=== PATIENT | male | born 1945 | race Caucasian/White ===

== ENCOUNTER 2019-05-05 10:30 | Day surgery (SDC) | payer MEDICARE, BC ==
[~2019-05-05 10:30] MED LIST: Propofol 200 MG/20 ML SDV ONE
[2019-05-05] MEDS ORDERED: Sodium Chloride 0.9% 10 ML Syringe FLUSH PRN (10:45)
[2019-05-05] MEDS: Lactated Ringers 1,000 ML IV SCH (10:54)
[2019-05-05] MEDS ORDERED: Midazolam 1 MG/ML 2 ML SDV ONE ×2 (11:29→12:04)
--- NOTE | 2019-05-05 11:32 | PCM.HPR ---
H & P Addendum review - H & P Addendum Review Date of Original H & P: 05/02/19 Date Reviewed: 05/05/19 Time Reviewed: 11:32 Patient was Examined: No Changes
[2019-05-05] MEDS: Albuterol/Ipratropium 3.0-0.5 MG/3 ML Neb Soln NEB ONE (11:38)
[2019-05-05] MEDS ORDERED: Lidocaine 2% 5 ML SDV ONE (12:04)
[2019-05-05] MEDS ORDERED: Propofol 200 MG/20 ML SDV ONE (12:04)
--- NOTE | 2019-05-05 12:14 | PCM.OPNOTE ---
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
--- NOTE | 2019-05-05 15:19 | OR ---
Date of Procedure: 05/05/2019 PREOPERATIVE DIAGNOSES: 1. Dysphagia. 2. Weight loss. POSTOPERATIVE DIAGNOSES: 1. Mid esophageal tumor. 2. Gastric ulcer. PROCEDURE: Esophagogastroduodenoscopy with biopsy. ANESTHESIA: IV sedation. DESCRIPTION OF PROCEDURE: The patient was brought to the procedure room where he was placed on his left side and IV sedation administered. Oral bite block was placed and the upper endoscope advanced into the esophagus under direct vision without difficulty. Vocal cords were viewed and were normal. The scope was advanced into the mid esophagus at which time a circumferential partially obstructing tumor was identified that began at 28 cm from the incisors and went all the way to 36 cm. This was very suspicious for malignancy with circumferential inflammation, ulceration, and friable tissue. I did take several biopsies at the end of the procedure throughout the length of the tumor. The scope was advanced to the duodenum. Duodenum and pylorus were normal. Antrum was normal. The body of the stomach has an elevated area along the greater curvature with central ulceration consistent with a gastric ulcer. I did take 2 biopsies from this. Retroflexion was otherwise normal. Squamocolumnar junction appeared normal. Air was removed from the stomach and the scope withdrawn. The patient tolerated the procedure well and returned to Recovery in stable condition. The patient will follow up with Leydi Montoya regarding the biopsies and ongoing care. FRANNIE DIAZ MD /[id number]
== END 2019-05-05 13:20 | disposition home or self-care (01) ==
LOC: LL.SDS 10:30
PROVIDERS: ATTEND Surgery
DX: C16.2 Malignant neoplasm of body of stomach (principal); C15.4 Malignant neoplasm of middle third of esophagus; I10 Essential (primary) hypertension; J44.9 Chronic obstructive pulmonary disease, unspecified; F17.200 Nicotine dependence, unspecified, uncomplicated; C67.9 Malignant neoplasm of bladder, unspecified; C69.20 Malignant neoplasm of unspecified retina; R63.4 Abnormal weight loss; Z68.1 Body mass index [BMI] 19.9 or less, adult; Z86.010 Personal history of colon polyps; Z79.82 Long term (current) use of aspirin; Z79.899 Other long term (current) drug therapy
CPT/HCPCS: 00731; 43239; 93005; J2001; J2250; J2704; J7120; J7620-GY